=== PATIENT | female | born 1980 | race African-American/Black ===

== ENCOUNTER 2023-02-22 12:04 | Outpatient (CLI) | payer BC, SELFPAY ==
--- NOTE | ~2023-02-22 | MMUS_ITS ---
EXAMINATION: MM diagnostic patricio BI w azeb, US breast BI complete HISTORY: Bilateral breast pain TECHNIQUE: ML, MLO and CC 3-D tomosynthesis images of both breasts were performed and synthetic 2-D i mages were generated. CAD analysis was submitted and interpreted. High resolution complete bilateral breast ultrasound examination including all 4 quadrants and subareolar areas was performed. COMPARISON: None BREAST PARENCHYMAL COMPOSITION: The breasts are heterogeneously dense, which may obscure small masses . FINDINGS: MAMMOGRAPHIC FINDINGS: No suspicious mass or architectural distortion, malignant calcification, skin thickening or retractio n is detected. ULTRASOUND: Right breast: No suspicious mass or shadowing, cyst or other significant abnormality of the right breast is detecte d. Left breast: 11:00 4 cm from nipple: Parallel circumscribed sonolucent cyst measuring approximately 1.9 x 0.5 x 1. 2 cm. 3:00 4 cm from nipple: 1.5 x 0.5 x 1.2 cm cyst 4:00 6 cm from nipple: 2.8 x 7.9 mm probable benign intramammary lymph node and adjacent approximatel y 2.6 x 10 mm cyst No suspicious mass or shadowing is detected. IMPRESSION: 1. Benign findings 2. Routine annual mammographic screening is recommended BI-RADS Category 2: Benign finding(s). Reviewed, dictated and finalized at location A. [facility] IMPRESSION: 1. Benign findings 2. Routine annual mammographic screening is recommended BI-RADS Category 2: Benign finding(s).
== END 2023-02-22 12:05 | disposition home or self-care (01) ==
DX: N64.52 Nipple discharge (principal)
CPT/HCPCS: 76641; 77062; 77066; G0279

== ENCOUNTER 2024-04-25 12:15 | Outpatient (CLI) | payer BC, SELFPAY ==
--- NOTE | ~2024-04-25 | MM_ITS ---
EXAMINATION: MM diagnostic patricio BI w azeb HISTORY: Breast pain TECHNIQUE: Additional 3-D tomosynthesis images of the breasts were performed and synthetic 2-D images were generated. CAD analysis was submitted and interpreted. COMPARISON: 02/22/2023 BREAST PARENCHYMAL COMPOSITION: Dense: The breasts are heterogeneously dense, which may obscure small masses FINDINGS: The breasts are stable. No new masses, calcifications or architectural distortion are ident ified in either breast to suggest malignancy. IMPRESSION: 1. No evidence for malignancy in either breast. 2. Routine yearly screening mammogram and regular clinical breast examination are recommended. BI-RADS Category 1: Negative Reviewed, dictated and finalized at location A. LING MACHINE OPERATOR IMPRESSION: 1. No evidence for malignancy in either breast. 2. Routine yearly screening mammogram and regular clinical breast examination a re recommended. BI-RADS Category 1: Negative
--- OUTSIDE RECORDS SUMMARY | 2024-04-25 13:13 | XMS_ITS | Referral Summary ---
Author Organization [facility] Address [address] [place] [id number] Care Team Providers Care Copper Tapper Name Role Phone Jordan Sunshine MD Unavailable [phone] Dorota Ma MD Primary Care Provider Allergies Active Allergy Reactions Criticality Noted Date Comments Sulfa (Sulfonamide Antibiotics) Urticaria Medium 07/26 Medications lidocaine (LIDODERM) 5 % 08/05/2020 Acti ve naproxen (NAPROSYN) 500 mg tablet 08/05/2020 Active Active Problems No known active problems Social History Tobacco Use Types Packs/Day Years Used Date Smoking Tobacco: Every Day Cigarettes 0.5 10 Tobacco Cessation:Ready to Q uit: No Personal Safety Answer Date Recorded Getting School Help Needed Not on file 05/28 Comments Unknown Sex and Gender Information Value Date Recorded Sex Assigned at Not on file Legal Sex Female 4:39 PM CDT Gender Identity Not on file Sexual Orientation Not on file Last Filed Vital Signs Vital Sign Reading Time Taken Comments Blood Pressure 118/84 09/10/2020 8:06 AM CDT Pulse 87 09/10/2020 8:06 AM CDT Temperature 36.6 ??C (97.9 ??F) 09/10/2020 8:06 AM CD T Respiratory Rate 16 09/10/2020 8:06 AM CDT Oxygen Saturation 99% 09/10/2020 8:06 AM CDT Inhaled Oxygen Concentration - - Weight 84.7 kg (186 lb 11.2 oz) 09/10/2020 8:06 AM CDT Height 167.6 cm (5' 6 ) 09/10/2020 8:06 AM CDT Body Mass Index 30.13 09/10/2020 8:06 AM CDT Plan of Treatment Not on file Insurance BLUE ACCESS OOS Care Teams Copper Tapper Relationship Specialty Start Date End Date Dorota Ma MD [address] [place] [address] PCP - General Gastroenterology 09/01/20 Jordan Sunshine MD Referring Physician Obstetrics and Gynecology 09/01/20
--- OUTSIDE RECORDS SUMMARY | 2024-04-25 13:13 | XMS_ITS | Patient Health Summary ---
Author Organization [facility] Address [address] [place] [address] Care Team Providers Care Purification Director Name Role Phone Reggie Gonzales MD Primary Care Provider Unavail able Note from [facility],non-owned Affiliates and Associated Physician Practices is amultiple site organization consisting of ambulatory clinics and hospital sitesin [place], [place], [place] and [place]. This disclosure is being madepursuant to the Care Everywhere program and may not contain all information available regarding this patient. Last updated 17.[facility] Allergies * Sulfa Drugs(Urticaria) -Medium Criticality Medications * Be aware that medications may not be up to date on this document. Alwaysverify current medications with the patient. * naproxen (NAPROSYN) 500 MG tablet(Started 08/05/2020) Take 1 (one) tablet by mouth 2 times daily * lidocaine (LIDODERM) 5 % patch(Started 08/05/2020) Apply 1 (one) patch to skin once daily Resolved Problems Problem Noted Date Diagnosed Date Resolved Date Gastroenteritis 04/07/2018 04/21/2018 Social History Tobacco Use Types Packs/Day Years Used Date Smoking Tobacco: Every Day Smokeless Tobacco: Never Alcohol Use Standard Drinks/Week Comments Yes 0 (1 standard drink = 0.6 oz pur e alcohol) Sex and Gender Information Value Date Recorded Sex Assigned at Not on file Gender Identity Not on file Sexual Orientation Not on file Last Filed Vital Signs Vital Sign Reading Time Taken Comments Blood Pressure 108/69 08/04/2020 11:21 PM CDT Pulse 87 08/04/2020 11:21 PM CDT Temperature 36.4 ??C (97.5 ??F) 08/04/2020 11:21 PM C DT Respiratory Rate 18 08/04/2020 11:21 PM CDT Oxygen Saturation 100% 08/04/2020 11:21 PM CDT Inhaled Oxygen Concentration - - Weight 78.5 kg (173 lb) 08/04/2020 6:00 PM CDT Height 167.6 cm (5' 6 ) 08/04/2020 6:00 PM CDT Body Mass Index 27.92 08/04/2020 6:00 PM CDT Procedures * US TRANSVAG W DOPPLER(Performed 08/05/2020) Performed for Abdominal pain, generalized * MAGNESIUM BLOOD(Performed 08/05/2020) * LACTIC ACID BLOOD REFLEX TO REPEAT(Performed 08/05/2020) * TROPONIN I(Performed 08/05/2020) * CK BLOOD(Performed 08/05/2020) * HCG URINE QUAL POCT NOTIFICATION(Performed 08/04/2020) * HCG URINE QUALITATIVE - POCT (IP) INTERFACED(Performed 08/04/2020) * URINALYSIS REFLEX TO MICROSCOPIC NO CULTURE(Performed 08/04/2020) * CT ABDOMEN PELVIS W CONTRAST(Performed 08/04/2020) Performed for Abdominal pain, generalized * COMPREHENSIVE METABOLIC PANEL(Performed 08/04/2020) * CBC W AUTO DIFFERENTIAL(Performed 08/04/2020) * INFLUENZA A+B - POINT OF CARE (AMB)(Performed 04/07/2018) Performed for Gastroenteritis * IR RADIOLOGIST CONSULTATION OP(Performed 08/13/2014) Performed for Leiomyoma of uterus, unspecified * MRI PELVIS WO CONTRAST(Performed 07/26/2014) Performed for Leiomyoma of uterus, unspecified * US PELVIS W TRANSVAG W DOP NON OB(Performed 07/26/2014) Performed for Leiomyoma of uterus, unspecified Results * US TRANSVAG W DOPPLER (08/05/2020 4:00 AM CDT) Anatomical Region Laterality Modality Pelvis Ultrasound 08/05/2020 9:21 AM CDT Impressions 08/05/2020 10:11 AM CDT Findings, as noted. Edited by Khloe Irwin on 08/05/2020 9:25 AM *Reading Radiologist: Yusuf Negron on 08/05/2020 at 10:11 AM Narrative 08/05/2020 10:11 AM CDT PELVIC SONOGRAM TRANSVAGINAL VIEWS. HISTORY: Pelvic pain, hysterectomy. Images show absent uterus. Right ovary is 2.6 x 1.6 cm. There is a follicle measuring 0.9 cm. There is normal color flow signal and waveform analysis. Left ovary is 2.8 x 1.6 cm and contains a 1.9 cm cyst. There is normal color flow signal and waveform analysis. There is a small amount of fluid in the cul-de-sac. Procedure Note Yusuf Negron MD - 08/05/2020 PELVIC SONOGRAM TRANSVAGINAL VIEWS. HISTORY: Pelvic pain, hysterectomy. Images show absent uterus. Right ovary is 2.6 x 1.6 cm. There is a follicle measuring 0.9 cm. There is normal color flow signal and waveform analysis. Left ovary is 2.8 x 1.6 cm and contains a 1.9 cm cyst. There is normal color flow signal and waveform analysis. There is a small amount of fluid in the cul-de-sac. IMPRESSION Findings, as noted. Edited by Khloe Irwin on 08/05/2020 9:25 AM *Reading Radiologist: Yusuf Negron on 08/05/2020 at 10:11 AM Mayur Duran MD US ORDERABLES * LACTIC ACID BLOOD REFLEX TO REPEAT (08/05/2020 3:30 AM CDT) Lactic Acid 1.4 0.5 - 2.2 mmol/L 08/05/2020 3:47 AM CDT [facility] Blood BLOOD SPECIMEN / Unknown Venipuncture / Unknown 08/05/2020 3:30 AM CDT 08/05/2020 3:36 AM CDT Mayur Duran MD LAB - CHEMISTRY ORDERABLES [facility] [address] [place] [address] * TROPONIN I (08/05/2020 3:30 AM CDT) Pathologist [facility] [place] Troponin I 0.017 <0.038 ng/mL 08/05/2020 3:58 AM CDT [facility] Blood BLOOD SPECIMEN / Unknown Venipuncture / Unknown 08/05/2020 3:30 AM CDT 08/05/2020 3:36 AM CDT Mayur Duran MD LAB - CHEMISTRY ORDERABLES Performing Organization Address City/[facility]/ZIP Co de Phone Number [facility] [address] [place] [phone] * MAGNESIUM BLOOD (08/05/2020 3:30 AM CDT) [facility] Magnesium 2.0 1.6 - 2.6 mg/dL 08/05/2020 3:53 AM CDT [facility] Blood BLOOD SPECIMEN / Unknown Venipuncture / Unknown 08/05/2020 3:30 AM CDT 08/05/2020 3:36 AM CDT Mayur Duran MD LAB - CHEMISTRY ORDERABLES Performing Organization Address [facility] Co de Phone Number [facility] [address] [place] [phone] * CK BLOOD (08/05/2020 3:30 AM CDT) [facility] CK 79 29 - 168 U/L 08/05/2020 3:53 AM CDT [facility] Blood BLOOD SPECIMEN / Unknown Venipuncture / Unknown 08/05/2020 3:30 AM CDT 08/05/2020 3:36 AM CDT Mayur Duran MD LAB - CHEMISTRY ORDERABLES Performing Organization Address [facility]/[place] de Phone Number [facility] [address] [place] [phone] * HCG URINE QUAL POCT NOTIFICATION (08/04/2020 9:30 PM CDT) [facility] Comment Notification Label Only - See Separate Report 08/04/2020 9:30 PM CDT [facility] Urine URINE / Unknown 8:05 PM CDT Mayur Duran MD LAB - URINALYSIS ORDERABLES Performing Organization Address [facility]/ZIP Co de Phone Number [facility] [address] [place] [phone] * HCG URINE QUALITATIVE - POCT (IP) INTERFACED (08/04/2020 8:12 PM CDT) HCG Qual Urine Negative Negative 08/04/2020 8:18 PM CDT [facility] Urine URINE / Unknown 08/04/2020 8 :12 PM CDT 08/04/2020 8:18 PM CDT Provider Unknown LAB - POINT OF CARE ORDERABLES Performing Organization Address [facility]/ZIP Co de Phone Number [facility] [address] [place] [phone] * (ABNORMAL) URINALYSIS REFLEX TO MICROSCOPIC NO CULTURE (08/04/2020 8:06 PM CDT) Color UA Yellow Straw, Yellow 08/04/2020 8:21 PM CDT [facility] Clarity UA Slt Cloudy(A) Clear 08/04/2020 8:21 PM CDT [facility] Glucose UA Negative Negative 08/04/2020 8:21 PM CDT [facility] Bilirubin UA Negative Negative 08/04/2020 8:21 PM CDT [facility] Ketone UA Negative Negative 08/04/2020 8:21 PM CDT [facility] Specific Sledge UA 1.014 1.005 - 1.030 08/04/2020 8:21 PM CDT [facility] Blood UA Negative Negative 08/04/2020 8:21 PM CDT [facility] pH UA 6.0 5.0 - 8.0 pH 08/04/2020 8:21 PM CDT [facility] Protein UA Negative Negative 08/04/2020 8:21 PM CDT [facility] Urobilinogen UA Negative Negative mg/dL 08/04/2020 8:21 PM CDT [facility] Nitrite UA Negative Negative 08/04/2020 8:21 PM CDT [facility] Leukocyte UA Negative Negative 08/04/2020 8:21 PM CDT [facility] Urine Microscopy Urine microscopy not indicated 08/04/2020 8:21 PM CDT [facility] Urine URINE SPECIMEN OBTAINED BY CLEAN CATCH PROCEDURE / Unknown Collection / Unknown 08/04/2020 8:06 PM CDT 08/04/2020 8:17 PM CDT Narrative [facility] - 08/04/2020 8:21 PM CDT Mayur Duran MD LAB - URINALYSIS ORDERABLES Performing Organization Address City/State/[facility] Co de Phone Number [facility] [address] [place] [address] * CT ABDOMEN AND PELVIS WITH IV CONTRAST - Acute Abdomen (08/04/2020 7:57 PM CDT) Anatomical Region Laterality Modality Abdomen, Pelvis Computed Tomogra phy 08/04/2020 8:20 PM CDT Narrative 08/04/2020 8:[address] abdomen pelvis HISTORY: Right-sided pain TECHNIQUE: Postcontrast imaging with 100 cc [id number] The liver, gallbladder, spleen, pancreas and adrenal glands are normal. The kidneys, visualized ureters and bladder are normal. The uterus is absent. Likely prominent bilateral ovarian follicles are present. There is a trace amount of free pelvic fluid The visualized stomach and large and small bowel and appendix are normal without free air. The aorta and its branches enhance normally. No significant adenopathy is seen. The heart size is normal. The lung bases are clear. DIAGNOSIS No acute intra-abdominal or pelvic abnormality *Reading Radiologist: Yash Lazo on 08/04/2020 at 8:24 PM Procedure Note Yash Lazo MD - 08/04/2020 CT abdomen pelvis HISTORY: Right-sided pain TECHNIQUE: Postcontrast imaging with 100 cc [id number] The liver, gallbladder, spleen, pancreas and adrenal glands are normal. The kidneys, visualized ureters and bladder are normal. The uterus is absent. Likely prominent bilateral ovarian follicles are present. There is a trace amount of free pelvic fluid The visualized stomach and large and small bowel and appendix are normal without free air. The aorta and its branches enhance normally. No significant adenopathy is seen. The heart size is normal. The lung bases are clear. DIAGNOSIS No acute intra-abdominal or pelvic abnormality *Reading Radiologist: Yash Lazo on 08/04/2020 at 8:24 PM Cyndi Suarez PA-C CT ORDERABLES * CBC W AUTO DIFFERENTIAL (08/04/2020 6:27 PM CDT) WBC 6.2 4.4 - 10.7 x10E9/L 08/04/2020 6:44 PM CDT [facility] WBC Corrected 08/04/2020 6:44 PM CDT [facility] RBC 4.60 3.80 - 5.20 x10E12/L 08/04/2020 6:44 PM CDT [facility] Hemoglobin 14.2 12.0 - 15.6 gm/dL 08/04/2020 6:44 PM CDT [facility] Hematocrit 42.7 35.9 - 45.5 % 08/04/2020 6:44 PM CDT [facility] MCV 92.8 80.7 - 98.3 fl 08/04/2020 6:44 PM CDT [facility] MCH 30.9 26.7 - 34.0 pg 08/04/2020 6:44 PM CDT [facility] MCHC 33.3 30.8 - 35.9 gm/dL 08/04/2020 6:44 PM CDT [facility] Platelet Count 219 153 - 416 x10E9/L 08/04/2020 6:44 PM CDT [facility] RDW-CV 13.6 12.1 - 14.9 % 08/04/2020 6:44 PM CDT [facility] MPV 11.3 9.4 - 12.9 fl 08/04/2020 6:44 PM CDT [facility] Neutrophils % 53.4 44.0 - 73.0 % 08/04/2020 6:44 PM CDT [facility] Lymphocytes % 39.6 20.0 - 43.0 % 08/04/2020 6:44 PM CDT [facility] Monocytes % 5.8 5.0 - 13.0 % 08/04/2020 6:44 PM CDT [facility] Eosinophils % 0.5 0.0 - 6.0 % 08/04/2020 6:44 PM CDT [facility] Basophils % 0.5 0.0 - 2.0 % 08/04/2020 6:44 PM CDT [facility] Immature Granulocytes 0.2 0 - 1 % 08/04/2020 6:44 PM CDT [facility] Neutrophil Absolute 3.29 2.01 - 7.14 x10E9/L 08/04/2020 6:44 PM CDT [facility] Lymphocytes Absolute 2.44 1.07 - 3.94 x10E9/L 08/04/2020 6:44 PM CDT [facility] Monocytes Absolute 0.36 0.26 - 1.07 x10E9/L 08/04/2020 6:44 PM CDT [facility] Eosinophils Absolute 0.03 0 - 0.47 x10E9/L 08/04/2020 6:44 PM CDT [facility] Basophils Absolute 0.03 0 - 0.08 x10E9/L 08/04/2020 6:44 PM CDT [facility] Immature Granulocytes Absolute 0.01 0.00 - 0.06 x10E9/L 08/04/2020 6:44 PM CDT [facility] nRBC Auto 0 /100 WBC 08/04/2020 6:44 PM CDT [facility] Blood BLOOD SPECIMEN / Unknown Venipuncture / Unknown 08/04/2020 6:27 PM CDT 08/04/2020 6:41 PM CDT Mayur Duran MD LAB - HEMATOLOGY ORDERABLES [facility] [address] [place] [address] * (ABNORMAL) COMPREHENSIVE METABOLIC PANEL (08/04/2020 6:27 PM CDT) [facility] Glucose 98 70 - 105 mg/dL 08/04/2020 6:59 PM CDT [facility] Sodium 139 136 - 145 mmol/L 08/04/2020 6:59 PM CDT [facility] Potassium 3.8 3.5 - 5.1 mmol/L 08/04/2020 6:59 PM CDT [facility] Chloride 105 98 - 107 mmol/L 08/04/2020 6:59 PM CDT [facility] CO2 26 23 - 31 mmol/L 08/04/2020 6:59 PM CDT [facility] Calcium 9.3 8.4 - 10.4 mg/dL 08/04/2020 6:59 PM CDT [facility] Anion Gap 8 8 - 18 mmol/L 08/04/2020 6:59 PM CDT [facility] Comment:Attention clinician: ??Reference Range change. BUN 5(L) 7 - 18.7 mg/dL 08/04/2020 6:59 PM CDT [facility] Creatinine 0.76 0.57 - 1.11 mg/dL 08/04/2020 6:59 PM CDT [facility] Alkaline Phosphatase 57 40 - 150 U/L 08/04/2020 6:59 PM CDT [facility] Comment:Attention clinician: ??Reference Range change. ALT 15 0 - 61 U/L 08/04/2020 6:59 PM CDT [facility] AST 14 5 - 34 U/L 08/04/2020 6:59 PM CDT [facility] Protein Total 7.8 6.4 - 8.3 gm/dL 08/04/2020 6:59 PM CDT [facility] Albumin 4.5 3.5 - 5.2 gm/dL 08/04/2020 6:59 PM CDT [facility] Bilirubin Total 0.6 0.2 - 1.2 mg/dL 08/04/2020 6:59 PM CDT [facility] Comment:Attention clinician: ??Reference Range change. eGFR by MDRD >60 >60 mL/min/1.7 3m2 08/04/2020 6:59 PM CDT [facility] eGFR by MDRD >60 >60 mL/min/1.7 3m2 08/04/2020 6:59 PM CDT [facility] Blood BLOOD SPECIMEN / Unknown Venipuncture / Unknown 08/04/2020 6:27 PM CDT 08/04/2020 6:41 PM CDT Mayur Duran MD LAB - CHEMISTRY ORDERABLES [facility] [address] [place] [address] * INFLUENZA A+B - POINT OF CARE (AMB) (04/07/2018) Influenza A Antigen Rapid Negative Negative Influenza B Antigen Rapid Negative Negative Influenza Internal Control positive NEGATIVE - POSITIVE Influenza Lot Number [id number] Influenza Expiration Date 11/30/19 Other NASOPHARYNGEAL SWAB / Unknown 04/07/2018 Maura Hardwick DEPENDENCY PROGRAM DIRECTOR-[employer] LAB - POINT OF CA RE ORDERABLES * IR RADIOLOGIST CONSULTATION OP (08/13/2014 2:07 PM CDT) Anatomical Region Laterality Modality X-Ray Angiograph y 08/13/2014 2:26 PM CDT Narrative 08/13/2014 2:38 PM CDT Outpatient interventional radiology consult Dr. Sunshine has requested that I see Ms. Dempsey, a new patient to our service, in consultation and possible treatment of her chief complaint Chief complaint: Fibroids History: Ms. Dempsey is a 34-year-old female with a history of prolonged bleeding associated with her periods. Her periods last approximately one week and she passes clots multiple days. She has also developed worsening pelvic pain over the past few years which is more sharp in nature but does not radiate. She has never had a blood transfusion related to anemia. 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 Review of systems: negative other than stated above Physical examination: Afebrile, vital signs stable AAOx3, no acute distress Respirations even and unlabored Laboratory: None available MRI: MR dated July 26, 2014 demonstrates multiple intramural fibroids with mild distortion of the endometrial canal. No pedunculated or subendometrial fibroid is seen. Assessment/plan: 34-year-old female with a and fibroid uterus. We had a long discussion regarding the uterine fibroid embolization procedure in addition to the risks, benefits, and alternatives. She is a good candidate for uterine fibroid embolization but as we discussed there is an approximately 85% success rate. She was uncomfortable with these numbers and therefore decided to pursue a hysterectomy at this time as she has no further plans for fertility. She will therefore contact her recep for this. We would be happy proceed with fibroid embolization if she changes her mind. Approximately 45 minutes was spent on this consultation and evaluation, the majority of the time with the patient explaining treatment options and disease process. CC: Jordan Sunshine Procedure Note Cammy Verdin MD - 08/13/2014 Outpatient interventional radiology consult Dr. Sunshine has requested that I see Ms. Dempsey, a new patient to our service, in consultation and possible treatment of her chief complaint Chief complaint: Fibroids History: Ms. Dempsey is a 34-year-old female with a history of prolonged bleeding associated with her periods. Her periods last approximately one week and she passes clots multiple days. She has also developed worsening pelvic pain over the past few years which is more sharp in nature but does not radiate. She has never had a blood transfusion related to anemia. 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 Review of systems: negative other than stated above Physical examination: Afebrile, vital signs stable AAOx3, no acute distress Respirations even and unlabored Laboratory: None available MRI: MR dated July 26, 2014 demonstrates multiple intramural fibroids with mild distortion of the endometrial canal. No pedunculated or subendometrial fibroid is seen. Assessment/plan: 34-year-old female with a and fibroid uterus. We had a long discussion regarding the uterine fibroid embolization procedure in addition to the risks, benefits, and alternatives. She is a good candidate for uterine fibroid embolization but as we discussed there is an approximately 85% success rate. She was uncomfortable with these numbers and therefore decided to pursue a hysterectomy at this time as she has no further plans for fertility. She will therefore contact her recep for this. We would be happy proceed with fibroid embolization if she changes her mind. Approximately 45 minutes was spent on this consultation and evaluation, the majority of the time with the patient explaining treatment options and disease process. CC: Jordan Sunshine Cammy Verdin MD IR ORDERABLES * MRI PELVIS NON CONTRAST (07/26/2014 12:09 PM CDT) Anatomical Region Laterality Modality Pelvis Magnetic Resonan ce 07/26/2014 5:15 PM CDT Narrative 07/26/2014 5:18 PM CDT MRI pelvis Indication for examination: Persistent vaginal bleeding. Pelvic pain. Noncontrast T1 and T2-weighted sagittal, axial and coronal images of the pelvis are obtained. Comparison is made with a recent ultrasound examination. Examination of the uterus confirms the presence of enlargement of the uterus with multiple uterine leiomyomas. Single largest leiomyoma is noted on the right side of the mid body of the uterus, measuring approximately 5 cm diameter. There is distortion of the endometrial cavity. There are small cervical cysts. The uterus itself is anteverted. There is a 5 cm septated right ovarian or adnexal cyst. Additional small cysts or follicles are identified in the right and left ovary. No other dominant ovarian or adnexal abnormality. There is no significant free fluid. There are no abnormally enlarged pelvic lymph nodes. Bony structures show grossly normal marrow signal intensity. Conclusion: Numerous uterine leiomyomas. Largest of these is on the right side laterally measuring 5 cm diameter. There is distortion of the endometrial cavity with a small amount of blood in the mesial cavity. 5 cm septated cyst right ovary. No other ovarian or adnexal abnormality. No free fluid. No other focal findings. Procedure Note Lorenzo Hooker MD - 07/26/2014 MRI pelvis Indication for examination: Persistent vaginal bleeding. Pelvic pain. Noncontrast T1 and T2-weighted sagittal, axial and coronal images of the pelvis are obtained. Comparison is made with a recent ultrasound examination. Examination of the uterus confirms the presence of enlargement of the uterus with multiple uterine leiomyomas. Single largest leiomyoma is noted on the right side of the mid body of the uterus, measuring approximately 5 cm diameter. There is distortion of the endometrial cavity. There are small cervical cysts. The uterus itself is anteverted. There is a 5 cm septated right ovarian or adnexal cyst. Additional small cysts or follicles are identified in the right and left ovary. No other dominant ovarian or adnexal abnormality. There is no significant free fluid. There are no abnormally enlarged pelvic lymph nodes. Bony structures show grossly normal marrow signal intensity. Conclusion: Numerous uterine leiomyomas. Largest of these is on the right side laterally measuring 5 cm diameter. There is distortion of the endometrial cavity with a small amount of blood in the mesial cavity. 5 cm septated cyst right ovary. No other ovarian or adnexal abnormality. No free fluid. No other focal findings. Jordan Sunshine MD MR ORDERABLES * US PELVIS W/TRANSVAG AND DOPPLER (07/26/2014 10:45 AM CDT) Anatomical Region Laterality Modality Pelvis Ultrasound 07/26/2014 11:0 2 AM CDT Impressions 07/26/2014 11:16 AM CDT Enlarged fibroid uterus. Complex cyst right ovary. Edited by Rayna Marinelli on 07/26/2014 11:14 AM Narrative 07/26/2014 11:16 AM CDT Ultrasound Pelvis Transabdominal and Transvaginal Indication: Menorrhagia, enlarged uterus, fibroids. Grayscale ultrasound of the pelvis is performed transabdominally and transvaginally. The uterus is enlarged measuring 12.0 x 7.2 x 6.2 cm. The endometrial stripe is 9 mm. There is fluid in the endometrial canal. There are multiple heterogeneous fibroids with the largest measuring 4.6 x 4.4 x 3.8 cm toward the right posterior and fundal. A large complex cyst is noted in the right ovary measuring 4.4 x 4.8 x 4.7 cm with an internal triangular focus which ??may be a thickened septum. The right ovary itself measures 5.1 x 5.7 x 4.9 cm. The left ovary measures 2.1 x 2.0 x 2.1 cm. The left ovary is unremarkable with multiple normal follicles. There is normal color flow, color spectral Doppler analysis and arterial and venous waveforms identified to both ovaries. Procedure Note Vee Millan MD - 07/26/2014 Ultrasound Pelvis Transabdominal and Transvaginal Indication: Menorrhagia, enlarged uterus, fibroids. Grayscale ultrasound of the pelvis is performed transabdominally and transvaginally. The uterus is enlarged measuring 12.0 x 7.2 x 6.2 cm. The endometrial stripe is 9 mm. There is fluid in the endometrial canal. There are multiple heterogeneous fibroids with the largest measuring 4.6 x 4.4 x 3.8 cm toward the right posterior and fundal. A large complex cyst is noted in the right ovary measuring 4.4 x 4.8 x 4.7 cm with an internal triangular focus which may be a thickened septum. The right ovary itself measures 5.1 x 5.7 x 4.9 cm. The left ovary measures 2.1 x 2.0 x 2.1 cm. The left ovary is unremarkable with multiple normal follicles. There is normal color flow, color spectral Doppler analysis and arterial and venous waveforms identified to both ovaries. IMPRESSION Enlarged fibroid uterus. Complex cyst right ovary. Edited by Rayna Marinelli on 07/26/2014 11:14 AM Jordan Sunshine MD ORDERABLES Care Teams Purification Director Relationship Specialty Start Date End Date Reggie Gonzales MD PCP - General Obstetrics and Gynecology 07/25/14
--- OUTSIDE RECORDS SUMMARY | 2024-04-25 13:13 | XMS_ITS | Referral Summary ---
Author Organization [facility] Address [address] [place] [address] Care Team Providers Care Honest John Rocket Crew Member Name Role Phone Reggie Gonzales MD Primary Care Provider Unavail able Source Comments [facility],non-owned Affiliates and Associated Physician Practices is amultiple site organization consisting of ambulatory clinics and hospital sitesin [place], [place], [place] and [place]. This disclosure is being madepursuant to the Care Everywhere program and may not contain all information available regarding this patient. Last updated 17.[facility] Allergies Active Allergy Reactions Criticality Noted Date Comments Sulfa Drugs Urticaria Medium 08/04/2020 Medications * Be aware that medications may not be up to date on this document. Alwaysverify current medications with the patient. Medication Sig Dispensed Refills Start Date End Date Status naproxen (NAPROSYN) 500 MG tablet Take 1 (one) tablet by mouth 2 times daily 60 tablet 08/05/2020 Active lidocaine (LIDODERM) 5 % patch Apply 1 (one) patch to skin once daily 30 patch 08/05/2020 Active Resolved Problems Problem Noted Date Diagnosed Date [...] Mass Index 27.92 08/04/2020 6:00 PM CDT Plan of Treatment Not on file Care Teams Honest John Rocket Crew Member Relationship Specialty Start Date End Date Reggie Gonzales MD PCP - General Obstetrics and Gynecology 07/25/14
--- OUTSIDE RECORDS SUMMARY | 2024-04-25 13:13 | XMS_ITS | Clinical Summary ---
Author Organization [facility] Address [address] [place] [id number] Care Team Providers Care Payroll Examiner Name Role Phone Jordan Sunshine MD Unavailable [phone] Dorota Ma MD Primary Care Provider Allergies [...] on file Sexual Orientation Not on file Obstetrics History Para Term AB IAB SAB Ectopic Multiple Livin g Live Births 4 4 Date Outcome GA Total Labor Labor/2nd/3rd Weight Sex Type Anes PTL Yulisa A1 A5 Name Clin Last Filed Vital Signs Vital Sign Reading [...] 09/10/2020 8:06 AM CDT Plan of Treatment Health Maintenance Due Date Last Done Comments Breast Cancer Screening-Mammogram 1978 Cervical Cancer Screening 1978 Colon Cancer Screening-Colonoscopy 1978 Depression Screening 1978 Hepatitis C Screening 1978 Pneumococcal vaccine <65 (1 of 2 - PCV) 1984 DTaP/Tdap/Td Vaccine (1 - Tdap) 1989 Hepatitis B Screening 1996 Regular Well Visit/Exam 18-64 1996 Influenza Vaccine (#1) 2023 HPV Vaccines Aged Out No longer eligi ble based on patient's age to complete this topic Insurance [employer] OOS Care Teams Payroll Examiner Relationship Specialty Start Date End Date Dorota Ma MD [address] [place] [address] PCP - General Gastroenterology 09/01/20 Jordan Sunshine MD Referring Physician Obstetrics and Gynecology 09/01/20
--- OUTSIDE RECORDS SUMMARY | 2024-04-25 13:13 | XMS_ITS | Clinical Summary ---
Author Organization [facility] Address [address] [place] [address] Care Team Providers Care Relay Man Name Role Phone Reggie Gonzales MD Primary Care Provider Unavail able Source Comments [facility],non-owned Affiliates and Associated Physician Practices is amultiple site organization consisting of ambulatory clinics and hospital sitesin [place], [place], [place] and [place]. This disclosure is being madepursuant to the Care Everywhere program and may not contain all information available regarding this patient. Last updated 17.[facility] Allergies Active Allergy Reactions Criticality Noted Date [...] 08/04/2020 6:00 PM CDT Plan of Treatment Health Maintenance Due Date Last Done Comments COLOGUARD (AGES 45-75) - COL ON CA SCREENING 1978 COLON MONITORING 1978 COLONOSCOPY - COLON CA SCREENING 1978 CT COLONOGRAPHY - COLON CA SCREENING 1978 Colorectal Cancer Screening 1978 FIT - COLON CA SCREENING 1978 FLEX SIG - COLON CA SCREENING 1978 LIPID TESTING 1978 MAMMOGRAM 1978 PAP SMEAR 1978 HIV SCREENING 1993 HEPATITIS C SCREENING 05/18/1996 DTAP/TDAP/TD VACCINES (1 - Tdap) 1997 HEPATITIS B VACCINE (1 of 3 - 19+ 3-dose series) 1997 PNEUMOCOCCAL VACCINE (1 of 2 - PCV) 1997 COVID-19 VACCINE (1 - 2023-2 5 season) 2023 INFLUENZA VACCINE (#1) 2023 DEPRESSION SCREENING 03/28/2024 ZOSTER VACCINE (1 of 2) 2028 HIB VACCINE Aged Out No longer eligi ble based on patient's age to complete this topic HPV VACCINE Aged Out No longer eligi ble based on patient's age to complete this topic MENINGOCOCCAL (Group B) VACCINE Aged Out No longer eligible based on patient's age to complete this topic MENINGOCOCCAL VACCINE Aged Out No darek antoine eligible based on patient's age to complete this topic Care Teams Relay Man Relationship Specialty Start Date End Date Reggie Gonzales MD PCP - General Obstetrics and Gynecology 07/25/14
== END 2024-04-25 12:16 | disposition home or self-care (01) ==
LOC: ANHIMG 12:18
PROVIDERS: PCP Internal Medicine; Visit Provider Internal Medicine
DX: N64.4 Mastodynia (principal)
CPT/HCPCS: 77062; 77066; G0279

== ENCOUNTER 2024-06-19 19:49 | Emergency (ER) | payer BC, SELFPAY ==
--- NOTE | ~2024-06-19 | CT_ITS ---
EXAMINATION: CT abdomen pelvis w con DATE: 06/19/2024 22:15 INDICATION: RUQ, RLQ pain, N/V TECHNIQUE: Computed tomography (CT) of the abdomen and pelvis was performed with 100 mL Omnipaque-350 intravenous contrast. Automated exposure control and iterative reconstruction technique were employe d. The dose-length product was 282.33 mGy-cm. COMPARISON: None. FINDINGS: Lower thorax: Unremarkable Liver: Liver is enlarged. Uniform parenchymal enhancement. Pronounced periportal edema. Biliary/Gallbladder: Gallbladder is normal in size without stones. Mild pericholecystic fluid. No jose e duct dilation. Pancreas: No mass or duct dilation. Spleen: Normal. Adrenals:No mass. Kidneys: No suspicious mass, obstructing stone, or hydronephrosis. GI tract: Moderate distal esophageal and gastric wall edema. No small or large bowel dilation. Diffus e mild colonic wall edema. The appendix measures up to 7 mm, with mucosal hyperemia. No significant s urrounding inflammatory change. Mesentery/Peritoneum: No ascites, mass, or free air. Retroperitoneum: No mass. Atherosclerotic calcifications of intra-abdominal arterial vessels. Pelvis: Normal urinary bladder. Absent uterus. Normal left ovary. Right ovary is not confidently visu alized. Multicystic/multiseptated 5.2 x 8.7 cm right adnexal mass. Soft Tissues: Soft tissues and body wall unremarkable. Bones: No acute osseous finding. IMPRESSION: Moderate esophagitis/gastritis. Hepatomegaly with pronounced portal edema. Normal sized gallbladder without stones, but with small volume pericholecystic fluid, presumably reac tive. Correlate with biliary labs and right upper quadrant pain. Appendix measures up to 7 mm and demonstrates mucosal hyperemia which could be consistent with early/ mild acute appendicitis in the appropriate clinical context. Diffuse mild colonic wall edema may represent infectious, inflammatory, or less likely ischemic colit is. 8.7 cm multicystic/multiseptated right adnexal mass, may represent a peritoneal inclusion cyst, ovari an, or other adnexal mass. Recommend pelvic ultrasound for further evaluation. Reviewed, dictated and finalized at location K. IMPRESSION: Moderate esophagitis/gastritis. Hepatomegaly with pronounced portal edema. Normal sized gallbladder without stones, but with small volume pericholecystic fluid, presumably reactive. Correlate with biliary labs and right upper quadran t pain. Appendix measures up to 7 mm and demonstrates mucosal hyperemia which could be consistent with early/mild acute appendicitis in the appropriate clinical [place] xt. Diffuse mild colonic wall edema may represent infectious, inflammatory, or less likely ischemic colitis. 8.7 cm multicystic/multiseptated right adnexal mass, may represent a peritoneal inclusion cyst, ovarian, or other adnexal mass. Recommend pelvic ultrasound fo r further evaluation.
--- NOTE | ~2024-06-19 | US_ITS ---
EXAMINATION: US pelvic complete w TV DATE: 06/20/2024 01:09 INDICATION: Right lower quadrant abdominal pain. TECHNIQUE: Multiple transabdominal sonographic images of the pelvis were obtained. COMPARISON: CT abdomen and pelvis 06/19/2024 FINDINGS: The uterus is absent. There is physiologic free fluid in the pelvis. In the right adnexa, there is a 7.2 x 4.6 x 5.2 cm mass with multiple cysts measuring up to 2.7 with peripheral low-level echoes and with a cystic component measuring 2.9 cm with mural hyperechoic and hypoechoic component. This mass i s probably an enlarged ovary. The left ovary measures 1.6 x 1.0 x 0.9 cm. There is normal vascular fl ow in the ovaries. IMPRESSION: 1. Right adnexal mass, probably an enlarged ovary with hemorrhagic cysts. Follow-up pelvis ultrasound is recommended in 6-12 weeks. Reviewed, dictated and finalized at location A. IMPRESSION: 1. Right adnexal mass, probably an enlarged ovary with hemorrhagic cysts. Follo w-up pelvis ultrasound is recommended in 6-12 weeks.
--- OUTSIDE RECORDS SUMMARY | 2024-06-19 19:52 | XMS_ITS | Referral Summary ---
Author Organization [facility] Address [address] [place] [id number] Care Team Providers Care Coil Former Name Role Phone Jordan Sunshine MD Unavailable [phone] Dorota Ma MD Primary Care Provider Allergies [...] 87 09/10/2020 8:06 AM CDT Temperature 36.6 C (97.9 F) 09/10/2020 8:06 AM CDT Respiratory Rate 16 09/10/2020 8:06 AM CDT Oxygen Saturation 99% 09/10/2020 8:06 AM CDT Inhaled Oxygen Concentration - - Weight 84.7 kg (186 lb 11.2 oz) 09/10/2020 8:06 AM CDT Height 167.6 cm (5' 6 ) 09/10/2020 8:06 AM CDT Body Mass Index 30.13 09/10/2020 8:06 AM CDT Plan of Treatment Not on file Insurance [employer] ACCESS OOS Care Teams Coil Former Relationship Specialty Start Date End Date Dorota Ma MD [address] [place] [id number] PCP - General Gastroenterology 09/01/20 Jordan Sunshine MD Referring Physician Obstetrics and Gynecology 09/01/20
--- OUTSIDE RECORDS SUMMARY | 2024-06-19 19:52 | XMS_ITS | Clinical Summary ---
Author Organization [facility] Address [address] [place] [phone] Care Team Providers Care Bander Hand Name Role Phone Jordan Sunshine MD Unavailable Dorota Ma MD Primary Care Provider Allergies [...] Depression Screening 1978 Hepatitis C Screening 1978 DTaP/Tdap/Td Vaccine (1 - Tdap) 1989 Hepatitis B Screening 1996 Regular Well Visit/Exam 18-64 1996 Pneumococcal vaccine <65 (1 of 2 - PCV) 1997 Influenza Vaccine (#1) 2023 HPV Vaccines Aged Out No longer eligi ble based on patient's age to complete this topic Insurance [employer] OOS Care Teams Bander Hand Relationship Specialty Start Date End Date Dorota Ma MD [address] [place] [id number] PCP - General Gastroenterology 09/01/20 Jordan Sunshine MD Referring Physician Obstetrics and Gynecology 09/01/20
--- OUTSIDE RECORDS SUMMARY | 2024-06-19 19:52 | XMS_ITS | Clinical Summary ---
Author Organization [facility] Address [address] [place] [address] Care Team Providers Care News Agent Name Role Phone Reggie Gonzales MD Primary Care Provider Unavail able Source Comments [facility],non-owned Affiliates and Associated Physician Practices is amultiple site organization consisting of ambulatory clinics and hospital sitesin [place], [place], [place] and [place]. This disclosure is being madepursuant to the Care Everywhere program and may not contain all information available regarding this patient. Last updated 17.[facility] Allergies Active Allergy Reactions Criticality Noted Date [...] 87 08/04/2020 11:21 PM CDT Temperature 36.4 C (97.5 F) 08/04/2020 11:21 PM CDT Respiratory Rate 18 08/04/2020 11:21 PM CDT [...] of 3 - 19+ 3-dose series) 1997 COVID-19 VACCINE (1 - 2023-2 5 season) 2023 INFLUENZA VACCINE (#1) 2023 DEPRESSION SCREENING 03/28/2024 ZOSTER VACCINE (1 of 2) 2028 HIB VACCINE Aged Out No longer eligi ble based on patient's age to complete this topic HPV VACCINE Aged Out No longer eligi ble based on patient's age to complete this topic MENINGOCOCCAL (Group B) VACC INE SHARED DECISION-MAKING Aged Out No longer eligibl e based on patient's age to complete this topic MENINGOCOCCAL GROUPS A/C/Y/W VACCINE Aged Out No longer eligible b ased on patient's age to complete this topic PNEUMOCOCCAL VACCINE Aged Out No long er eligible based on patient's age to complete this topic Care Teams News Agent Relationship Specialty Start Date End Date Reggie Gonzales MD PCP - General Obstetrics and Gynecology 07/25/14
[2024-06-19 19:53] VITALS: BP 182/63; PULSE 55; RESP 14; TEMP 36.4; O2SAT 98
--- NOTE | 2024-06-19 20:05 | ECG_ITS ---
Test Date: 2024-06-19 20:26:49 Measurements Intervals [place] Rate: 46 P: 75 CO: 158 QRS: 58 QRSD: 88 T: 56 QT: 461 QTc: 406 Interpretive Statements SINUS BRADYCARDIA No previous ECG available for comparison Electronically Signed On 06-20-2024 12:47:39 CDT by Lamont Daniels M.D.
--- NOTE | 2024-06-19 20:19 | ED.ABDPAIN ---
HPI - Abdominal Pain General Chief Complaint: Abdominal Pain <Donald Cheema PA-C - Last Filed: 06/20/24 03:08> Stated Complaint: Right lower Abd pain goes to flank , N/V <Donald Cheema PA-C - Last Filed: 06/20/24 03:08> Time Seen by Provider: 06/19/24 20:09 <Donald Cheema PA-C - Last Filed: 06/20/24 03:08> Source: patient <Donald Cheema PA-C - Last Filed: 06/20/24 03:08> Mode of arrival: ambulatory <KEISHA Antonio Last Filed: 06/20/24 03:08> Limitations: no limitations <Donald Cheema PA-C - Last Filed: 06/20/24 03:08> History of Present Illness HPI narrative: This is a 44-year-old female who presents to the ED for chief complaint of abdominal pain beginning this morning. Patient is largely giving history through nodding and shaking her head. Spouse is supplementing history. They report the pain has progressively worsened throughout the day. Reports multiple episodes of vomiting. Endorses constipation. Patient states the pain is all the right side with no left-sided pain. Does indicate there is some radiation to the right flank. States that she has been unable to eat anything today due to vomiting. Denies fevers, chills, chest pain, shortness of breath, urinary symptoms. <Donald Cheema PA-C - Last Filed: 06/20/24 03:08> Related Data Allergies/Adverse Reactions: Allergies Allergy/AdvReac Type Severity Reaction Status Date / Time Sulfa (Sulfonamide Allergy Rash Verified 06/19/24 19:51 Antibiotics) <Donald Cheema PA-C - Last Filed: 06/20/24 03:08> Review of Systems Review of Systems: All systems as dictated in HPI <Donald Cheema PA-C - Last Filed: 06/20/24 03:08> [facility] Social History Social History: Social History (Updated 03/07/23 @ 14:56 by Julia Andres MA) Smoking status: Current every day smoker Lack of Transportation: No Lack of Food: Never True Current Housing: I Have Housing Concerned About Future Housing: No Difficulty Paying Gas/Electric Bills: No Difficulty Paying for Meds: No Currently Unemployed: No Education: Master's Degree or Higher Difficulty w/ Childcare or Family Care: No <Donald Cheema PA-C - Last Filed: 06/20/24 03:08> Exam Narrative: GENERAL: Well-appearing, well-nourished, and in no acute distress. HEAD: Normocephalic, atraumatic. EYES: PERRLA and EOMI. ENT: Nares clear, no rhinorrhea or epistaxis. Mucous membranes moist. Oropharynx without tonsillar hypertrophy exudate or other lesions. NECK: Supple. No adenopathy or masses. CHEST: No respiratory distress. Clear to auscultation. No wheezes rales or rhonchi HEART: Regular rate and rhythm. No murmur heard. Normal peripheral pulses. ABDOMEN: Tenderness to the right upper quadrant and right lower quadrant. Soft, otherwise nontender, nondistended, normal active bowel sounds. MSK: Normal range of motion. No edema. SKIN: Warm, dry, no rash. NEURO: Alert and oriented x4. No focal deficits. PSYCH: Normal mood and affect. <Donald Cheema PA-C - Last Filed: 06/20/24 03:08> Course NEWSPAPER DISTRIBUTOR SUPERVISOR/PA Physician Supervision PA discussed patient me. She is signed out to me after a CT scan was concerning for multi cystic mass in pelvis. Patient is pending interpretation of ultrasound study that was done. He a has already discussed patient with ObGyn Dr Tejada whom agrees with outpatient followup with her provided US does not demonstrate anything alternatively. Patient had been reassessed by the PA who noted that she was pain-free without leukocytosis fever. She had been prescribed antibiotics for colitis by him. US report received and dictated as below, similar to CT findings. Patient otherwise stable for discharge with f/u with ObGyn. <Kassie Madera MD - Last Filed: 06/20/24 17:32> Reevaluation(s) Reevaluation #1: Patient is sleeping in the stretcher. She has no tenderness to the RLQ. There is still mild tenderness to the right upper quadrant. <Donald Cheema PA-C - Last Filed: 06/20/24 03:08> Date: 06/20/24 <Donald Cheema PA-C - Last Filed: 06/20/24 03:08> Time: 02:15 <Donald Cheema PA-C - Last Filed: 06/20/24 03:08> Consultations Consultation #1: Spoke with Dr. Tejada (EDGER TECHNICIAN): We discussed the findings of the CT results with the adnexal mass. She agrees that this is most likely a chronic finding and does not seem to exactly fit with her clinical picture. She does recommend that the patient follow-up closely in clinic as she will likely need to have the mass removed. <Donald Cheema PA-C - Last Filed: 06/20/24 03:08> Date: 06/20/24 <Donald Cheema PA-C - Last Filed: 06/20/24 03:08> Time: 02:57 <Donald Cheema PA-C - Last Filed: 06/20/24 03:08> Vital Signs Vital signs: Vital Signs Temperature 97.6 F 06/19/24 19:53 Pulse Rate 55 L 06/19/24 19:53 Respiratory Rate 14 06/19/24 19:53 Blood Pressure 182/63 H 06/19/24 19:53 Pulse Oximetry 98 06/19/24 19:53 Oxygen Delivery Room Air 06/19/24 19:53 Temperature 97.6 F 06/19/24 19:53 Pulse Rate 59 L 06/20/24 04:28 Respiratory Rate 16 06/20/24 04:28 Blood Pressure 139/71 06/20/24 04:28 Pulse Oximetry 98 06/20/24 04:28 Oxygen Delivery Room Air 06/19/24 19:53 <Donald Cheema PA-C - Last Filed: 06/20/24 03:08> Vital Signs Temperature 97.6 F 06/19/24 19:53 Pulse Rate 55 L 06/19/24 19:53 Respiratory Rate 14 06/19/24 19:53 Blood Pressure 182/63 H 06/19/24 19:53 Pulse Oximetry 98 06/19/24 19:53 Oxygen Delivery Room Air 06/19/24 19:53 Temperature 97.6 F 06/19/24 19:53 Pulse Rate 59 L 06/20/24 04:28 Respiratory Rate 16 06/20/24 04:28 Blood Pressure 139/71 06/20/24 04:28 Pulse Oximetry 98 06/20/24 04:28 Oxygen Delivery Room Air 06/19/24 19:53 <Kassie Madera MD - Last Filed: 06/20/24 17:32> MDM - Abdominal Pain MDM Narrative Medical decision making narrative: This is a 44-year-old female who presents to the ED for chief complaint of abdominal pain, N/V/D beginning today. Vitals on arrival show elevated blood pressure but otherwise normal. Exam remarkable for the above and she does appear uncomfortable in the stretcher. She does have right lower and right upper quadrant tenderness. Lab work shows normal white count on the CBC. She is afebrile. CMP grossly unremarkable. Lipase normal. Urinalysis shows evidence of dehydration but no overt infection. She has not have flank pain to indicate pyelonephritis. Viral swabs negative. CT abdomen pelvis with IV contrast: IMPRESSION: Moderate esophagitis/gastritis. Hepatomegaly with pronounced portal edema. Normal sized gallbladder without stones, but with small volume pericholecystic fluid, presumably reactive. Correlate with biliary labs and right upper quadrant pain. Appendix measures up to 7 mm and demonstrates mucosal hyperemia which could be consistent with early/mild acute appendicitis in the appropriate clinical context. Diffuse mild colonic wall edema may represent infectious, inflammatory, or less likely ischemic colitis. 8.7 cm multicystic/multiseptated right adnexal mass, may represent a peritoneal inclusion cyst, ovarian, or other adnexal mass. Recommend pelvic ultrasound for further evaluation. Patient is still having pain after 1st round of pain medications so 2nd round of Dilaudid was ordered. Also ordered pelvic ultrasound to follow-up on the CT scan the right adnexal mass. Repeat abdominal evaluation does show tenderness is more concentrated the right upper quadrant. She is no longer tender in the RLQ. Patient will be discharged in stable condition. Supportive measures discussed and return precautions given. Patient is understanding and agreeable with plan for discharge with PCP follow-up. <Donald Cheema PA-C - Last Filed: 06/20/24 03:08> Lab Data Result diagrams: 06/19/24 20:32 06/19/24 20:32 <Donald Cheema PA-C - Last Filed: 06/20/24 03:08> Labs: Lab Results 06/19/24 06/19/24 06/19/24 Range/Units 20:32 21:20 21:47 WBC 7.5 (4.5-10.0) K/mm3 RBC 4.35 (4.2-5.4) M/mm3 Hgb 13.2 (12.0-15.0) g/dL Hct 38.9 (37.0-47.0) % MCV 89.4 (80-100) fl MCH 30.3 (26-34) pg MCHC 33.9 (32-36) g/dl RDW 14.0 (11.5-14.5) % Plt Count 186 (150-375) k/mm3 MPV 11.1 H (7.4-10.4) fl Immature Gran % (Auto) 0.4 (0-0.5) % Neut % (Auto) 67.6 (45.5-73.1) % Lymph % (Auto) 24.0 (18.3-44.2) % [place] % (Auto) 7.2 (2.6-8.5) % Eos % (Auto) 0.3 (0-4.4) % Baso % (Auto) 0.5 (0.2-1.2) % Lymph # (Auto) 1.81 (0.9-3.2) K/mm3 [place] # (Auto) 0.5 (0.1-0.6) K/mm3 Eos # (Auto) 0.0 (0-0.3) K/mm3 Baso # (Auto) 0.0 (0.0-0.1) K/mm3 Abs Immat Gran (auto) 0.03 (0.00-0.031) K/mm3 Absolute Neuts (auto) 5.1 (1.3-6.7) K/mm3 Absolute Nucleated RBC 0.000 (0.0-0.012) K/mm3 Nucleated RBC % 0.0 (0.0-0.2) % Sodium 136 L (137-145) mmol/L Potassium 3.5 (3.4-5.0) mmol/L Chloride 103 (98-107) mmol/L Carbon Dioxide 22 (22-30) mmol/L Anion Gap 11 (4-12) mmol/L BUN 7 (7-17) mg/dL Creatinine 0.77 (0.7-1.0) mg/dL Estim Creat Clear Calc Not Reportable Estimated GFR > 60 (59 - ) Glucose 133 H (65-110) mg/dL Calcium 8.8 (8.4-10.2) mg/dL Total Bilirubin 0.8 (0.2-1.3) mg/dL AST 25 (14-36) U/L ALT 17 (6-35) U/L Alkaline Phosphatase 71 (38-126) U/L Total Protein 7.0 (6.3-8.2) g/dL Albumin 4.2 (3.5-5.1) g/dL Lipase 122 (23-300) U/L Urine Color Yellow (Yellow) Urine Appearance Cloudy H (Clear) Urine pH 5.5 (5.0-9.0) Ur Specific [place] 1.019 (1.001-1.035) Urine Protein 1+ H (Negative) mg/dL Urine Glucose (UA) Negative (Negative) mg/dL Urine Ketones 3+ H (Negative) mg/dL Ur Blood (Man) Negative (Negative) Urine Nitrate Negative (Negative) Urine Bilirubin Negative (Negative) Urine Urobilinogen 0.2 (<2.0) mg/dL Add Ur Microanalysis Reviewed Leukocyte Esterase Rfl Negative (Negative) HERIBERTO/UL Urine RBC 0-2 (0-2) /hpf Urine WBC 6-10 H (0-3) /hpf Ur Squamous Epith Cells Moderate (Few) /hpf Urine Bacteria 1+ H /hpf Urine Casts 0-2 Urine Mucus Present /lpf POC Urine HCG, Qual Negative (Negative) Influenza A (RT-PCR) Negative (Negative) Influenza B (RT-PCR) Negative (Negative) RSV (RT-PCR) Negative (Negative) SARS-CoV-2 RNA (RT-PCR) Negative (Negative) <Donald Cheema PA-C - Last Filed: 06/20/24 03:08> Lab Results 06/19/24 06/19/24 06/19/24 Range/Units 20:32 21:20 21:47 WBC 7.5 (4.5-10.0) K/mm3 RBC 4.35 (4.2-5.4) M/mm3 Hgb 13.2 (12.0-15.0) g/dL Hct 38.9 (37.0-47.0) % MCV 89.4 (80-100) fl MCH 30.3 (26-34) pg MCHC 33.9 (32-36) g/dl RDW 14.0 (11.5-14.5) % Plt Count 186 (150-375) k/mm3 MPV 11.1 H (7.4-10.4) fl Immature Gran % (Auto) 0.4 (0-0.5) % Neut % (Auto) 67.6 (45.5-73.1) % Lymph % (Auto) 24.0 (18.3-44.2) % [place] % (Auto) 7.2 (2.6-8.5) % Eos % (Auto) 0.3 (0-4.4) % Baso % (Auto) 0.5 (0.2-1.2) % Lymph # (Auto) 1.81 (0.9-3.2) K/mm3 [place] # (Auto) 0.5 (0.1-0.6) K/mm3 Eos # (Auto) 0.0 (0-0.3) K/mm3 Baso # (Auto) 0.0 (0.0-0.1) K/mm3 Abs Immat Gran (auto) 0.03 (0.00-0.031) K/mm3 Absolute Neuts (auto) 5.1 (1.3-6.7) K/mm3 Absolute Nucleated RBC 0.000 (0.0-0.012) K/mm3 Nucleated RBC % 0.0 (0.0-0.2) % Sodium 136 L (137-145) mmol/L Potassium 3.5 (3.4-5.0) mmol/L Chloride 103 (98-107) mmol/L Carbon Dioxide 22 (22-30) mmol/L Anion Gap 11 (4-12) mmol/L BUN 7 (7-17) mg/dL Creatinine 0.77 (0.7-1.0) mg/dL Estim Creat Clear Calc Not Reportable Estimated GFR > 60 (59 - ) Glucose 133 H (65-110) mg/dL Calcium 8.8 (8.4-10.2) mg/dL Total Bilirubin 0.8 (0.2-1.3) mg/dL AST 25 (14-36) U/L ALT 17 (6-35) U/L Alkaline Phosphatase 71 (38-126) U/L Total Protein 7.0 (6.3-8.2) g/dL Albumin 4.2 (3.5-5.1) g/dL Lipase 122 (23-300) U/L Urine Color Yellow (Yellow) Urine Appearance Cloudy H (Clear) Urine pH 5.5 (5.0-9.0) Ur Specific [place] 1.019 (1.001-1.035) Urine Protein 1+ H (Negative) mg/dL Urine Glucose (UA) Negative (Negative) mg/dL Urine Ketones 3+ H (Negative) mg/dL Ur Blood (Man) Negative (Negative) Urine Nitrate Negative (Negative) Urine Bilirubin Negative (Negative) Urine Urobilinogen 0.2 (<2.0) mg/dL Add Ur Microanalysis Reviewed Leukocyte Esterase Rfl Negative (Negative) HEIRBERTO/UL Urine RBC 0-2 (0-2) /hpf Urine WBC 6-10 H (0-3) /hpf Ur Squamous Epith Cells Moderate (Few) /hpf Urine Bacteria 1+ H /hpf Urine Casts 0-2 Urine Mucus Present /lpf POC Urine HCG, Qual Negative (Negative) Influenza A (RT-PCR) Negative (Negative) Influenza B (RT-PCR) Negative (Negative) RSV (RT-PCR) Negative (Negative) SARS-CoV-2 RNA (RT-PCR) Negative (Negative) <Kassie Madera MD - Last Filed: 06/20/24 17:32> Imaging Data Radiologist's impression: ITS Impressions Abdomen/Pelvis CT 06/19/24 23:16 IMPRESSION: Moderate esophagitis/gastritis. Hepatomegaly with pronounced portal edema. Normal sized gallbladder without stones, but with small volume pericholecystic fluid, presumably reactive. Correlate with biliary labs and right upper quadrant pain. Appendix measures up to 7 mm and demonstrates mucosal hyperemia which could be consistent with early/mild acute appendicitis in the appropriate clinical context. Diffuse mild colonic wall edema may represent infectious, inflammatory, or less likely ischemic colitis. 8.7 cm multicystic/multiseptated right adnexal mass, may represent a peritoneal inclusion cyst, ovarian, or other adnexal mass. Recommend pelvic ultrasound for further evaluation. Pelvic/Transvag US 06/20/24 05:29 IMPRESSION: 1. Right adnexal mass, probably an enlarged ovary with hemorrhagic cysts. Follow-up pelvis ultrasound is recommended in 6-12 weeks. <Donald Cheema PA-C - Last Filed: 06/20/24 03:08> ITS Impressions Abdomen/Pelvis CT 06/19/24 23:16 IMPRESSION: Moderate esophagitis/gastritis. Hepatomegaly with pronounced portal edema. Normal sized gallbladder without stones, but with small volume pericholecystic fluid, presumably reactive. Correlate with biliary labs and right upper quadrant pain. Appendix measures up to 7 mm and demonstrates mucosal hyperemia which could be consistent with early/mild acute appendicitis in the appropriate clinical context. Diffuse mild colonic wall edema may represent infectious, inflammatory, or less likely ischemic colitis. 8.7 cm multicystic/multiseptated right adnexal mass, may represent a peritoneal inclusion cyst, ovarian, or other adnexal mass. Recommend pelvic ultrasound for further evaluation. Pelvic/Transvag US 06/20/24 05:29 IMPRESSION: 1. Right adnexal mass, probably an enlarged ovary with hemorrhagic cysts. Follow-up pelvis ultrasound is recommended in 6-12 weeks. US Pelvis/Endovag Stat Rad: There is a complicated cystic and solid mass of the right adnexa with mural nodularity of 1 of the cystic components. This is concerning for malignancy, gynecologic consult is recommended. Small amount of free fluid in the right pelvis is noted. No torsion of either ovary. Hysterectomy. No incidental findings. <Kassie Mdaera MD - Last Filed: 06/20/24 17:32> Discharge Plan Discharge Clinical Impression: Abdominal pain, Adnexal mass, Colitis <Donald Cheema PA-C - Last Filed: 06/20/24 03:08> Patient Disposition: Home, Self-Care <Donald Cheema PA-C - Last Filed: 06/20/24 03:08> Condition: Stable <Donald Cheema PA-C - Last Filed: 06/20/24 03:08> Instructions: Antibiotic Form <Donald Cheema PA-C - Last Filed: 06/20/24 03:08> Additional Instructions: Your exam today does show large mass to right adnexal space where the ovary as. You will need to follow-up very closely with gynecology on this issue (Dr Tejada). There is evidence of possible colitis on the CT scan so antibiotics will be prescribed. Continue with Tylenol 500 mg and ibuprofen 600 mg as needed for pain control. If you have any new or worsening symptoms please return to the ER for further evaluation. <Donald Cheema PA-C - Last Filed: 06/20/24 03:08> Patient Language: Khmer <Donald Cheema PA-C - Last Filed: 06/20/24 03:08> Prescriptions: New amoxicillin-pot clavulanate 875-125 mg tablet 1 tablet PO Q12H Qty: 14 0RF <Donald Cheema PA-C - Last Filed: 06/20/24 03:08> Follow-up/Referrals: Liam,MD Leonidas [Primary Care Provider] - Falguni Tejada MD [Physician] - <Donald Cheema PA-C - Last Filed: 06/20/24 03:08> Stand Alone Forms: Work/School Release IP <Donald Cheema PA-C - Last Filed: 06/20/24 03:08> Time of Disposition: 03:58 <Donald Cheema PA-C - Last Filed: 06/20/24 03:08> 03:58 <Kassie Madera MD - Last Filed: 06/20/24 17:32>
[2024-06-19] MEDS: LACTATED RINGERS 1,000 ML 999 ML IV CONT (20:32)
[2024-06-19] MEDS: HYDROmorphone HCL INJ (*CRX) 1 MG/ML SYR 0.5 MG IV PUSH ×2 (20:33→23:49)
[2024-06-19] MEDS: ONDANSETRON INJ 4 MG/2 ML VIAL IV PUSH (20:33)
[2024-06-19 20:36] VITALS: BP 155/76; PULSE 47; RESP 12; O2SAT 100
[2024-06-19 20:41] LABS: Basophils Percent Auto 0.5 % (0.2-1.2); Eosinophils Percent Auto 0.3 % (0-4.4); Hematocrit 38.9 % (37.0-47.0); Hemoglobin 13.2 g/dL (12.0-15.0); Immature Granulocyte Absolute 0.03 K/mm3 (0.00-0.031); Immature Granulocyte Percent A 0.4 % (0-0.5); Lymphocytes Absolute Auto 1.81 K/mm3 (0.9-3.2); Mean Corpuscular HGB Conc 33.9 g/dl (32-36); Mean Corpuscular Hemoglobin 30.3 pg (26-34); Mean Corpuscular Volume 89.4 fl (80-100); Mean Platelet Volume 11.1 fl (7.4-10.4); Monocytes Absolute Auto 0.5 K/mm3 (0.1-0.6); Monocytes Percent Auto 7.2 % (2.6-8.5); Neutrophils Absolute Auto 5.1 K/mm3 (1.3-6.7); Neutrophils Percent Auto 67.6 % (45.5-73.1); Platelet Count Result 186 k/mm3 (150-375); Red Blood Count 4.35 M/mm3 (4.2-5.4); White Blood Count 7.5 K/mm3 (4.5-10.0)
--- OUTSIDE RECORDS SUMMARY | 2024-06-19 20:47 | XMS_ITS | Clinical Summary ---
Author Organization [facility] Address [address] [place] [id number] Care Team Providers Care Scrub Tech Name Role Phone Jordan Sunshine MD Unavailable [phone] Dorota Ma MD Primary Care Provider Allergies [...] patient's age to complete this topic Insurance [employer] Care Teams Scrub Tech Relationship Specialty Start Date End Date Dorota Ma MD [address] [place] [id number] PCP - General Gastroenterology 09/01/20 Jordan Sunshine MD Referring Physician Obstetrics and Gynecology 09/01/20
--- OUTSIDE RECORDS SUMMARY | 2024-06-19 20:47 | XMS_ITS | Clinical Summary ---
Author Organization [facility] Address [address] [place] [address] Care Team Providers Care K 9 Handler/ Deputy Name Role Phone Reggie Gonzales MD Primary Care Provider Unavail able Source Comments [facility],non-owned Affiliates and Associated Physician Practices is amultiple site organization consisting of ambulatory clinics and hospital sitesin [place], [place], [place] and [place]. This disclosure is being madepursuant to the Care Everywhere program and may not contain all information available regarding this patient. Last updated 17.[facility] Allergies Active Allergy Reactions Criticality Noted Date [...] age to complete this topic Care Teams K 9 Handler/ Deputy Relationship Specialty Start Date End Date Reggie Gonzales MD PCP - General Obstetrics and Gynecology 07/25/14
--- OUTSIDE RECORDS SUMMARY | 2024-06-19 20:47 | XMS_ITS | Referral Summary ---
Author Organization [facility] Address [address] [place] [id number] Care Team Providers Care Reaming Press Operator Name Role Phone Jordan Sunshine MD Unavailable [phone] Dorota Ma MD Primary Care Provider Allergies [...] Plan of Treatment Not on file Insurance [employer] ACCESS OOS Care Teams Reaming Press Operator Relationship Specialty Start Date End Date Dorota Ma MD [address] [place] [id number] PCP - General Gastroenterology 09/01/20 Jordan Sunshine MD Referring Physician Obstetrics and Gynecology 09/01/20
[2024-06-19 20:52] LABS: Alanine Aminotransferase 17 U/L (6-35); Albumin Level 4.2 g/dL (3.5-5.1); Alkaline Phosphatase 71 U/L (38-126); Anion Gap 11 mmol/L (4-12); Aspartate Amino Transferase 25 U/L (14-36); Bilirubin,Total 0.8 mg/dL (0.2-1.3); Blood Urea Nitrogen 7 mg/dL (7-17); Calcium 8.8 mg/dL (8.4-10.2); Carbon Dioxide 22 mmol/L (22-30); Chloride 103 mmol/L (98-107); Estimated Glomerular Filt Rate > 60; Glucose 133 mg/dL (65-110); Lipase 122 U/L (23-300); Potassium 3.5 mmol/L (3.4-5.0); Sodium 136 mmol/L (137-145)
[2024-06-19 21:16] LABS: Influenza A QL RT-PCR Negative (Negative); Influenza B QL RT-PCR Negative (Negative); RSV RNA, RT-PCR Negative (Negative); SARS-CoV-2 RNA PCR Negative (Negative)
[2024-06-19 21:33] LABS: Add Urine Microscopic? YES; Appearance Urine Cloudy (Clear); Bacteria Urine 1+ /hpf; Bilirubin Urine Negative (Negative); Blood Urine Negative (Negative); Color Urine Yellow (Yellow); Glucose Urine UA Negative (Negative); Ketones Urine 3+ mg/dL (Negative); Leukocyte Esterase Ur Negative LEU/UL (Negative); Mucus Urine Present /lpf; Need Manual Microscopic Reviewed; Nitrate Urine Negative (Negative); Non Pathogenic Casts 0-2; Protein Urine 1+ mg/dL (Negative); RBC Urine 0-2 /hpf (0-2); Specific Grav Ur 1.019 (1.001-1.035); Squamous Epithelial Cell Urine Moderate /hpf (Few); Urobilinogen Urine 0.2 mg/dL (<2.0); pH Urine 5.5 (5.0-9.0)
--- NOTE | 2024-06-19 21:45 | PC.NURSE ---
Pt. reminded to keep her R. arm straight so fluids can infuse.
[2024-06-19 21:48] LABS: BEDSIDEPREGUCG Negative (Negative)
[2024-06-19 22:33] VITALS: BP 136/57; PULSE 52; RESP 16; O2SAT 100
[2024-06-19] MEDS: SODIUM CHLORIDE 0.9% IV 1,000 ML 999 ML IV CONT (23:39)
[2024-06-20] VITALS: BP 144/76; PULSE 54; RESP 17; O2SAT 100
[2024-06-20] MEDS: PIPERACILLIN/TAZ 4.5G/NS 100ML 4.5 GM/100 ML BAG IVPB (01:23)
[2024-06-20 02:20] VITALS: BP 141/77; PULSE 52; RESP 15; O2SAT 97
[2024-06-20 04:28] VITALS: BP 139/71; PULSE 59; RESP 16; O2SAT 98
== END 2024-06-20 04:29 | disposition home or self-care (01) ==
PROVIDERS: Student in an Organized Health Care Education/Training Program; Emergency Provider Physician Assistant; PCP Internal Medicine
DX: R10.31 Right lower quadrant pain (principal); R19.03 Right lower quadrant abdominal swelling, mass and lump; K52.9 Noninfective gastroenteritis and colitis, unspecified; Z20.822 Contact with and (suspected) exposure to COVID-19
CPT/HCPCS: 36415; 74177; 76830; 76856; 80053; 81001; 81025; 83690; 85025; 87637; 93005; 96361; 96365; 96375; 96376; 99284; J1171; J2405; J2543; J7030; J7120; Q9967